=== PATIENT | male | born 1945 | race Caucasian/White ===

== ENCOUNTER 2018-07-15 11:49 | Outpatient (REF) | payer MEDICARE, OTHER, SELFPAY ==
[2018-07-15 21:37] LABS: TSH (W/Ref FT4) 3.16 uIU/mL (0.358-3.74); Vitamin B12 332 pg/mL (193-986)
[2018-07-17 11:09] LABS: PSA, Diagnostic 2.1 ng/ml (0-6.5)
[2018-07-22 09:43] LABS: Methylmalonic Acid 0.32 nmol/mL (<=0.40)
== END 2018-07-15 12:09 ==
LOC: NCHCN 11:49
PROVIDERS: PCP Family Medicine; Visit Provider Family Medicine
DX: I10 Essential (primary) hypertension (principal); N40.0 Benign prostatic hyperplasia without lower urinary tract symptoms; R73.09 Other abnormal glucose; G62.89 Other specified polyneuropathies
CPT/HCPCS: 80186; 82607; 83036; 84153; 84443

== ENCOUNTER → 2018-09-10 10:22 | Outpatient (BNVA) | payer MEDICARE, OTHER, SELFPAY | PROVIDERS: PCP Family Medicine; Referring Provider Family Medicine; Visit Provider Surgery | DX: R10.11 Right upper quadrant pain (principal); J44.9 Chronic obstructive pulmonary disease, unspecified; F17.210 Nicotine dependence, cigarettes, uncomplicated; I10 Essential (primary) hypertension | CPT/HCPCS: 99213 ==

== ENCOUNTER 2018-10-15 06:02 | Day surgery (SDC) | payer MEDICARE, SELFPAY ==
[2018-10-15 06:10] VITALS: BP 120/84; PULSE 92; RESP 19; TEMP 36.7; O2SAT 97
[2018-10-15] MEDS: Lactated Ringers 1,000 ML 30 ML IV (06:58)
--- NOTE | 2018-10-15 07:27 | HPE_ITS ---
Date of service: 10/15/18 Time of Service: 07:20 Assessment and Plan (1) Right upper quadrant abdominal pain: Current visit: No Status: Acute Recommended upper endoscopy to evaluate for acute on chronic changes of right upper quadrant abdominal pain. I reviewed the procedure with him and and discussed the risk of the procedure with Mr. Alan. All his questions were answered to his satisfaction. We will also consider MRCP if upper endoscopy is nondiagnostic, or unremarkable. This could be a retained common bile duct stone. I reviewed the procedure with him, and discussed the risks of the procedure. All his questions were answered to his satisfaction. Consent was obtained to proceed with upper endoscopy. History of Present Illness Chief Complaint: Right upper Quadrant abdominal pain Narrative: 73-year-old gentleman well-known to the practice from prior encounters for colonoscopy, hernia repair, cholecystectomy. He reports a history of right upper quadrant pain that is intermittent over the last several years the pain is usually dull, achy, and presents continually. It is often made worse by certain types of foods seems by questioning that these usually fatty foods but it is not consistent. He has had a cholecystectomy, and the pains been present since after that. He did have a EGD performed over a year ago in [place] which he reports showed fatty tumors in the stomach . He states that over the last few months the pain is become worse and he is concerned that there is been a change in the fatty tumors. I do not have any record of this EGD Review of Systems Review of Systems All systems reviewed & are unremarkable except as noted in HPI and below PFSH Medical History RUQ abdominal pain (Acute) Acromioclavicular joint pain (Chronic) Aortic aneurysm (Chronic) Atrial fibrillation (Chronic) COPD (chronic obstructive pulmonary disease) (Chronic) Early satiety (Chronic) Enlarged prostate (Chronic) Essential hypertension (Chronic) GERD (gastroesophageal reflux disease) (Chronic) Hyperlipidemia (Chronic) Memory impairment (Chronic) Neck pain (Chronic) On anticoagulant therapy (Chronic) Peripheral neuropathy (Chronic) Popliteal aneurysm (Chronic) Abnormal chest CT (Resolved) BRBPR (bright red blood per rectum) (Resolved) Blood in the stool (Resolved) Diverticulitis (Resolved) Dizziness (Resolved) Surgical History Appendectomy (Resolved) Cholecystectomy (Resolved) Colonoscopy - IV Sedation (Resolved 09/26/16) History of esophagogastroduodenoscopy (EGD) (Resolved 02/13/18) Repair of inguinal hernia (Resolved) Tonsillectomy (Resolved) Social History Smoking/Tobacco Use Status: Current every day tobacco type: cigarettes alcohol intake: former substance use type: does not use Meds Home Medications Medication Instructions Recorded Confirmed Type aspirin [Aspir-81] 81 mg PO DAILY 05/17/15 10/15/18 History pravastatin 40 mg PO HS 05/17/15 10/15/18 History warfarin 6 mg PO DAILY 05/17/15 09/10/18 History metoprolol tartrate 100 mg PO BID #180 tab 01/01/18 10/15/18 Rx rivaroxaban 20 mg tablet 20 mg PO DAILY 08/27/18 10/15/18 History vitamin B complex 1 cap PO DAILY 10/15/18 10/15/18 History Allergies Allergy/AdvReac Type Severity Reaction Status Date / Time Penicillins Allergy Skin Rash Verified 10/15/18 06:26 Green/Blue Dyes AdvReac Intermediate Uncoded 10/15/18 06:26 Exam Const General: cooperative, no acute distress, well developed and well groomed Nutritional Appearance: overweight Orientation: alert, awake and oriented x3 HENMT Head: normal to inspection Ears: hearing grossly normal bilaterally General nose exam: external nose normal Face and sinus: normal facial exam Mouth: oral mucosae normal Eyes Periorbital: periorbital findings normal Conjunctivae: conjunctivae normal Pupils: PERRL EOM: EOM intact bilaterally Neck Neck: normal visual inspection Chest Chest: normal inspection of the chest Resp Effort & Inspection: normal respiratory effort Auscultation: clear to auscultation bilaterally Cardio Rate: regular rate Rhythm: regular rhythm Heart Sounds: S1 normal and S2 normal GI Inspection: normal to inspection and non-distended Palpation: soft, no guarding and nontender Skin General skin exam: no rashes or lesions noted and turgor normal Neuro General: moves all extremities, no focal motor deficits and CN's II-XI intact bilaterally Extrem General: full ROM, normal capillary refill and no clubbing, cyanosis or edema Psych Appearance: grossly normal Mental Status: mental status grossly normal Judgment: judgment good Results Last Vital Signs Temp 36.7 C 10/15/18 06:10 Pulse 92 H 10/15/18 06:10 Resp 19 10/15/18 06:10 BP 120/84 10/15/18 06:10 Pulse Ox 97 10/15/18 06:10
--- NOTE | 2018-10-15 07:46 | STOM_PTH ---
PATIENT: Ignacio Alan LOC: [facility] U#:[id number] AGE/SX: 73/M ROOM: RE10/15/[address]: Frankie Hodgson DO : 1945 BED: DIS: 10/15/2018 SPEC #: [id number] RECD: 10/15/18 12:51 STATUS: [facility] #: [id number] ALMA: 10/15/18 07:[address]: Frankie Hodgson DEPT: Surgical Specimen RECD BY: Maria Luz Sahu ENTERED: 10/15/18 12:54 SP TYPE: STOMACH OTHR DR: Ana Rg V Tissues: 1 - STOMACH BIOPSY 2 - ESOPHAGUS BIOPSY Procedures: GROSS AND MICRO LEVEL 4 Comments: S19-11
[2018-10-15 08:39] VITALS: BP 131/89; PULSE 83; RESP 19; TEMP 36; O2SAT 99
--- NOTE | 2018-10-15 21:42 | ROE_ITS ---
Date of service: 10/15/18 Time of Service: 07:30 Operative Note DATE OF PROCEDURE: 10/15/18 PRE-OP DIAGNOSIS: Right upper quadrant abdominal pain POST-OP DIAGNOSIS: same PROCEDURE: Esophagogastroduodenoscopy with biopsy by cold forceps SURGEON: Frankie Hodgson ANESTHESIA: MAC (Dion Merrill CRNA; ASA 3 Mallampati class II) ESTIMATED BLOOD LOSS: 1 PATHOLOGY: other (1. Gastric antral biopsies 2. Biopsies of the gastroesophageal junction) COMPLICATIONS: None Patient was transported to: same day Patient's condition: stable Indications: 73-year-old gentleman well-known to the practice from prior encounters for colonoscopy, hernia repair, cholecystectomy. He reports a history of right upper quadrant pain that is intermittent over the last several years the pain is usually dull, achy, and presents continually. It is often made worse by certain types of foods seems by questioning that these usually fatty foods but it is not consistent. He has had a cholecystectomy, and the pains been present since after that. He did have a EGD performed over a year ago in [place] which he reports showed fatty tumors in the stomach . He states that over the last few months the pain is become worse and he is concerned that there is been a change in the fatty tumors. I do not have any record of this EGD. Recommended upper endoscopy to evaluate for acute on chronic changes of right upper quadrant abdominal pain. I reviewed the procedure with him and and discussed the risk of the procedure with Mr. Alan. All his questions were answered to his satisfaction. Consent was obtained to proceed with EGD. Findings: In examining the upper gastrointestinal tract from the oropharynx to the third portion of the duodenum, there was inflammatory changes with some shallow ulcerations noted in the gastric antrum for which biopsies were taken. There is also some irregularity noted around the GE junction at about 38 cm and biopsies were taken. Procedure Description: The patient was brought to the procedure room. Monitoring for telemetry, end- tidal CO2, O2 saturation, blood pressure were applied. An appropriate timeout was taken reviewing the patient's identification, allergies, medications,and procedure. A bite was placed, and sedation was titrated for effect by the SHARLENE. An Olympus variable stiffness endoscope was advanced from the oropharynx to the third portion of the duodenum without difficulty. The scope was then withdrawn in circumferential manner from the duodenum back to the oropharynx. In performing withdrawal of the scope, the duodenum appeared grossly normal. The scope was withdrawn into the gastric antrum and retroflexed to examine the entire stomach. There are no abnormalities noted of the duodenum. In the stomach there was noted inflammatory changes around the gastric antrum with some shallow ulcerations noted but the remainder of the stomach lesser and greater curvature anterior and posterior surfaces and fundus appeared grossly normal. The scope was then withdrawn to the GE junction which I measured at 38 cm The Z line was at 38 cm and appeared irregular. The irregularity of the Z line was noncircumferential and did not extend beyond 1 cm. Four-quadrant biopsies were taken from the GE junction submitted for pathology. I withdrew the scope thr ough the remainder of the esophagus all which appear grossly normal. Scope was then withdrawn terminating the upper endoscopy. Plan: No evidence of fatty tumors was identified in the stomach. There was ulceration seen and biopsies taken. Await biopsy results before making further recommendations in the interim I am going to start the patient on omeprazole.
== END 2018-10-15 09:49 | disposition home or self-care (01) ==
PROVIDERS: PCP Family Medicine; Visit Provider Surgery
PROC: 0DJ68ZZ Inspection of Stomach, Via Natural or Artificial Opening Endoscopic (ICD-10-PCS; CPT 43235; principal; 2018-10-15 07:30)
DX: R10.11 Right upper quadrant pain (principal); K31.89 Other diseases of stomach and duodenum; K21.0 Gastro-esophageal reflux disease with esophagitis; J44.9 Chronic obstructive pulmonary disease, unspecified; I10 Essential (primary) hypertension; K21.9 Gastro-esophageal reflux disease without esophagitis; F17.210 Nicotine dependence, cigarettes, uncomplicated
CPT/HCPCS: 43239; 88305; NC

== ENCOUNTER 2018-10-29 11:17 | Outpatient (CLI) | payer MEDICARE, OTHER, SELFPAY ==
[2018-10-29 11:57] LABS: Abs Immature Grans 0.01 k/cumm (0.0-0.09); Absolute Basophil Count 0.08 k/cumm (0.0-0.2); Absolute Eosinophil Count 0.39 k/cumm (0.0-0.7); Absolute Lymphocyte Count 2.91 k/cumm (1.2-3.4); Absolute Monocyte Count 0.81 k/cumm (0.11-0.7); Absolute Neutrophil Count 5.19 k/cumm (1.2-6.7); Basophils % 0.9; Eosinophils % 4.2; HCT 46.8 % (40.0-50.0); HGB 15.3 g/dL (13.5-17.5); Immature Grans % 0.1; Mean Corp. HGB Concentration 32.7 g/dL (32.0-36.0); Mean Corpuscular Hemoglobin 30.6 pg (27.0-33.0); Mean Corpuscular Volume 93.6 fL (80-95); Mean Platelet Volume 9.4 fL (8.0-11.0); Monocytes % 8.6; Neutrophils % 55.2; Platelet Count 273 x1000/uL (130-400); RBC Distribution Width 14.5 % (11.8-14.1); White Blood Cell Count 9.39 k/cumm (4.4-10.8)
[2018-10-29 12:38] LABS: ALT 19 U/L (12-78); AST 23 U/L (15-37); Albumin 3.6 g/dL (3.4-5.0); Alkaline Phosphatase 77 U/L (46-116); Anion Gap 9.8 mmol/L (3-11); BUN 15 mg/dL (7-18); Bilirubin, Total 1.6 mg/dL (0.2-1.0); CO2 28.2 mmol/L (21.0-32.0); Calcium 9.1 mg/dL (8.5-10.1); Chloride 103 mmol/L (98-107); Estimated GFR 59.68 (mL/min/1.73m2); Glucose 84 mg/dL (70-100); Lipase 144 U/L (73-393); Potassium 4.4 mmol/L (3.5-5.1); Sodium 141 mmol/L (136-145); Total Protein 7.5 g/dL (6.4-8.2)
[2018-10-30 18:06] LABS: Tissue Transglutaminase Ab IgA <1.2 U/mL; Tissue Transglutaminase Ab IgG 3.9 U/mL
== END 2018-10-29 11:37 ==
PROVIDERS: PCP Family Medicine; Visit Provider Specialist/Technologist Athletic Trainer
DX: R10.11 Right upper quadrant pain (principal); R14.1 Gas pain
CPT/HCPCS: 36415; 80053; 83690; 83516; 83735; 85025

== ENCOUNTER 2018-10-30 00:41 | Outpatient (CLI) | payer MEDICARE, OTHER, SELFPAY ==
--- NOTE | 2018-10-30 12:51 | DI.CT_ITS ---
SYMPTOMS/DIAGNOSIS: ACUTE ON CHRONIC ABDOMINAL PAIN, WORSE IN RIGHT UPPER QUADRANT, S/P GALLBLADDER REMOVAL, R10.11 CT SCAN OF THE ABDOMEN: CT scan of the abdomen was performed following the uneventful administration of intravenous and oral contrast material. Comparison CT scan is 08/27/16. There is some patient motion artifact. Mild dependent atelectatic changes are seen in the lung bases. The liver is normal in size. No suspicious hepatic mass is seen. The portal, superior mesenteric and splenic veins are patent. The patient is status post cholecystectomy. No biliary ductal dilatation is present. The pancreas is unremarkable, as are the spleen and adrenal glands. The kidneys show normal and symmetric enhancement. No evidence of a solid renal mass or obstruction is identified. There are bilateral renal cysts. The collecting system appears grossly unremarkable. There is a 4 cm infrarenal abdominal aortic aneurysm again noted. Atherosclerosis of the abdominal aorta is noted. No significant abdominal adenopathy, ascites or pneumoperitoneum is present. The bowel shows no evidence of obstruction or inflammation. No abnormal fluid collections are seen in the abdomen. There are degenerative changes seen in the spine. IMPRESSION: 1. No evidence of an acute abdomen. 2. Status post cholecystectomy. No biliary ductal dilatation. 3. Stable infrarenal abdominal aortic aneurysm.
[2018-10-30] MEDS: Omnipaque 350 MG/ML 50 ML BTL IJ (13:21)
[2018-10-30] MEDS: Omnipaque 350 MG/ML 100 ML BTL IJ (14:36)
== END 2018-10-30 01:01 ==
PROVIDERS: PCP Family Medicine; Visit Provider Specialist/Technologist Athletic Trainer
DX: R10.11 Right upper quadrant pain (principal); G89.29 Other chronic pain; Z90.49 Acquired absence of other specified parts of digestive tract; I71.4 Abdominal aortic aneurysm, without rupture
CPT/HCPCS: 74160; J3490; Q9967

== ENCOUNTER 2018-11-05 01:18 | Outpatient (CLI) | payer MEDICARE, OTHER, SELFPAY ==
--- NOTE | 2018-11-05 08:51 | DI.RAD_ITS ---
SYMPTOM/DIAGNOSIS: THORACIC BACK PAIN, M54.9, H/O INJURY CHILD THORACIC SPINE: The vertebral bodies are intact. Anterior spurring is noted at the T 9-10 and T 10-11 levels. 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 The pedicles and spinous processes are intact. The paravertebral soft tissues are normal. SUMMARY: Degenerative changes involving the dorsal spine as described above. 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 No acute abnormality is demonstrated. If there is further strong specific clinical question, then an MRI might be considered for further review.
== END 2018-11-05 01:38 ==
PROVIDERS: PCP Family Medicine; Visit Provider Specialist/Technologist Athletic Trainer
DX: M54.6 Pain in thoracic spine (principal); M50.321 Other cervical disc degeneration at C4-C5 level; M50.322 Other cervical disc degeneration at C5-C6 level; M50.323 Other cervical disc degeneration at C6-C7 level; M47.814 Spondylosis without myelopathy or radiculopathy, thoracic region
CPT/HCPCS: 72072

== ENCOUNTER 2019-01-10 09:35 | Outpatient (REF) | payer MEDICARE, OTHER, SELFPAY ==
[2019-01-11 20:12] LABS: Campylobacter PCR SEE COMMENTS; Salmonella PCR SEE COMMENTS; Shiga Toxin PCR SEE COMMENTS; Shigella/Enteroinvasive Ecoli SEE COMMENTS
[2019-01-14 00:57] LABS: Calprotectin 437 mcg/g
== END 2019-01-10 09:55 ==
LOC: LBN 09:35
PROVIDERS: PCP Family Medicine; Visit Provider Nurse Practitioner Family
DX: R14.0 Abdominal distension (gaseous) (principal)
CPT/HCPCS: 87329; 87505; 83993

== ENCOUNTER 2019-08-18 11:38 | Outpatient (REF) | payer MEDICARE, OTHER, SELFPAY ==
[2019-08-18 23:08] LABS: Vitamin B12 1567 pg/mL (193-986)
== END 2019-08-18 11:58 ==
LOC: NCHCN 11:38
PROVIDERS: PCP Family Medicine; Visit Provider Family Medicine
DX: E53.8 Deficiency of other specified B group vitamins (principal); R26.89 Other abnormalities of gait and mobility
CPT/HCPCS: 82607

== ENCOUNTER 2019-09-04 01:29 | Outpatient (CLI) | payer MEDICARE, OTHER, SELFPAY ==
--- NOTE | 2019-09-04 14:53 | DI.US_ITS ---
EXAM: US CAROTID CLINICAL HISTORY: NECK PAIN M54.2, HYPERLIPIDEMIA E78.5 TECHNIQUE: Ultrasound performed using standard protocol. COMPARISON: No exams were available for comparison FINDINGS: There is mixed calcific and noncalcified plaque in the right common carotid bulb and right internal carotid artery. There velocity elevations consistent with a greater than 70 percent stenosis. There is a small focus of calcific plaque in the left common carotid bulb. The velocity measurements are within the normal range, consistent with a less than 50 percent stenosis. Both vertebral arteries sh ow antegrade flow. IMPRESSION: Greater than 70 percent stenosis at the at the proximal right internal carotid artery. Less than 50 percent stenosis of the left internal carotid artery.
== END 2019-09-04 01:49 ==
PROVIDERS: PCP Family Medicine; Visit Provider Family Medicine
DX: M54.2 Cervicalgia (principal); I65.23 Occlusion and stenosis of bilateral carotid arteries
CPT/HCPCS: 93880

== ENCOUNTER 2019-11-10 08:04 | Outpatient (CLI) | payer MEDICARE, OTHER, SELFPAY | END 2019-11-10 08:24 | PROVIDERS: PCP Family Medicine; Visit Provider Internal Medicine Cardiovascular Disease | DX: I65.23 Occlusion and stenosis of bilateral carotid arteries (principal); I48.91 Unspecified atrial fibrillation; J44.9 Chronic obstructive pulmonary disease, unspecified; I10 Essential (primary) hypertension; Z87.891 Personal history of nicotine dependence | CPT/HCPCS: 99204; 99215; 93005; 93010 ==

== ENCOUNTER 2020-02-08 13:06 | Outpatient (CLI) | payer MEDICARE, OTHER, SELFPAY ==
--- NOTE | 2020-02-08 14:12 | DI.US_ITS ---
EXAM: US UPPER EXTREMITY VENOUS LT CLINICAL HISTORY: LT ARM SWELLING, PAIN, NEW A FIB, ? DVT OR CLOT, VASCULAR HISTORY TECHNIQUE: Ultrasound performed using standard protocol. COMPARISON: No exams were available for comparison FINDINGS: Duplex evaluation of the deep venous system of the left upper extremity was performed according to [facility] usual protocol. There is no evidence of deep venous thrombosis or superficial thrombus in the left upper extremity venous system. IMPRESSION: Negative DVT ultrasound. DATA REPOSITORY:
[2020-02-08 14:57] LABS: HCT 46.3 % (40.0-50.0); HGB 14.9 g/dL (13.5-17.5); Mean Corp. HGB Concentration 32.2 g/dL (32.0-36.0); Mean Corpuscular Hemoglobin 29.6 pg (27.0-33.0); Mean Corpuscular Volume 91.9 fL (80-95); Mean Platelet Volume 9.3 fL (8.0-11.0); Platelet Count 270 x1000/uL (130-400); RBC 5.04 m/cumm (4.50-6.00); RBC Distribution Width 15.3 % (11.8-14.1); White Blood Cell Count 9.66 k/cumm (4.4-10.8)
[2020-02-08 15:13] LABS: INR 1.2 (0.9-1.1); Prothrombin Time 12.2 sec (9.3-11.0)
[2020-02-08 15:19] LABS: ALT 23 U/L (16-63); AST 25 U/L (15-37); Albumin 3.7 g/dL (3.4-5.0); Alkaline Phosphatase 84 U/L (46-116); Anion Gap 7.3 mmol/L (3-11); BUN 19 mg/dL (7-18); CO2 28.7 mmol/L (21.0-32.0); CREATININE 1.13 mg/dL (0.70-1.30); Calcium 9.7 mg/dL (8.5-10.1); Chloride 102 mmol/L (98-107); Glucose 93 mg/dL (74-106); Potassium 4.3 mmol/L (3.5-5.1); Sodium 138 mmol/L (136-145); Total Protein 8.6 g/dL (6.4-8.2)
[2020-02-08 15:30] LABS: D-Dimer 823 ng/mlFEU (<500)
[2020-02-08 15:35] LABS: Calculated LDL 94 mg/dL (<100); Cholesterol 191 mg/dL (<200); HDL Cholesterol 71 mg/dL (40-60); Triglyceride 133 mg/dL (<150)
== END 2020-02-08 13:26 ==
PROVIDERS: PCP Family Medicine; Visit Provider Nurse Practitioner Family
DX: R22.32 Localized swelling, mass and lump, left upper limb (principal); M79.602 Pain in left arm; I10 Essential (primary) hypertension; I48.0 Paroxysmal atrial fibrillation; Z79.01 Long term (current) use of anticoagulants; E53.8 Deficiency of other specified B group vitamins; R73.01 Impaired fasting glucose; I65.23 Occlusion and stenosis of bilateral carotid arteries; R19.5 Other fecal abnormalities
CPT/HCPCS: 36415; 80053; 80061; 85027; 83036; 85379; 85610; 85730; 93971

== ENCOUNTER → 2020-08-09 12:46 | Outpatient (BNVA) | payer MEDICARE, OTHER, SELFPAY | PROVIDERS: PCP Family Medicine; Referring Provider Family Medicine; Visit Provider Internal Medicine Cardiovascular Disease | DX: I48.21 Permanent atrial fibrillation (principal); R06.02 Shortness of breath; I65.29 Occlusion and stenosis of unspecified carotid artery; I10 Essential (primary) hypertension; J44.9 Chronic obstructive pulmonary disease, unspecified; Z87.891 Personal history of nicotine dependence | CPT/HCPCS: 99214 ==

== ENCOUNTER 2020-08-16 00:47 | Outpatient (CLI) | payer MEDICARE, OTHER, SELFPAY ==
--- NOTE | 2020-08-16 06:45 | DI.NM_ITS ---
APPROVED REPORT Exam: Exercise Treadmill Patient Location: Out-Patient Room/Bed: Stress Nurse: Kanchan Calvin RN BMI: 29.12 Baseline Rhythm: Atrial Fibrillation Medical History Medical History: AFIB. COPD. PAD. Peripheral Neuropathy. HTN. HLD. Aortic Aneurysm. Popliteal Aneurys m. COPD. Cardiac Medications: Metoprolol Tartrate. ASA. Rivaroxaban. Allergies: Penicillins. Green/Blue Dyes. Cardiac Risk Factors: FHX of CAD, HTN, Hyperlipidemia, COPD, Smoking (former) Previous Cardiac Procedures: None. Pretest Chest Pain Characteristics: None. Exercise History: Sedentary Physical Disabilities: None. Lung Sounds: Clear to auscultation Heart Sounds: Irregular Stress Test Details Test: Exercise stress testing was performed using a Shravan protocol. Nuclear Acquisition: Rest Tc-99m/Stress Tc-99m 1 day Rest Isotope: Tc-99m Sestamibi. Dose: 14.4 Date: 08/16/2020 Injection Time: 0840 Stress Isotope: Tc-99m Sestamibi. Dose: 46 Date: 08/16/2020 Injection Time: 1015 HR Resting HR Supine: 97 bpm Max Heart Rate (APMHR): 147 bpm Resting HR Standin bpm Target HR (85% APMHR): 124 bpm Max HR Achieved: 188 bpm % of APMHR: 127 Recovery HR: 112 bpm HR response to stress: Accelerated HR response to stress BP Resting BP Supine: 170/100 mmHg Resting BP Standin/96 mmHg Max BP: 218/92 mmHg Recovery BP: 176/94 mmHg BP response to stress: Abnormal hypertensive response to stress. ECG Resting ECG: Atrial Fibrillation Ectopy: None. Stress ECG: Atrial Fibrillation ST Change: No significant ST segment changes noted. Arrhythmia: PVCs, Couplets, triplets Recovery ECG: Atrial Fibrillation Recovery ST Change: Normal Recovery Arrhythmia: PVCs. Clinical Reason for Termination: Dyspnea Stress Symptoms: Dyspnea Exercise duration: 3 min11 sec Highest Stage Reached: Stage 2: 2.5 mph at 12% grade. Exercise capacity: 4.83 METs Stress ECG Conclusion 1. The patient exercised for 3 minutes (5 METS). Exercise was stopped due to dyspnea. 2. The patient had PVCs but no evidence of ischemia on the ECG portion of the exam. Stress Test Summary STAGE Time (mins) Speed (mph) Grade (%) HR BP SYMPTOMS METS Supine 97 170/100 Standing 125 158/96 1 3 1.7 10 179 Dyspnea 4.6 1 min recovery Lightheadedness. 3 min recovery 119 218/92 Symptoms resolved. 6 min recovery 112 176/94 MPI Conclusion Fraction was 64% with stress. There were no wall motion abnormalities. There was no evidence of ischemia on the imaging portion of the exam. This represents a normal SPECT stress test. Radiologist Interpretation Radiologist Interpretation by: Rom Acuna MD Interpretation Date/Time: 08/16/2020 16:31:01
== END 2020-08-16 01:07 ==
PROVIDERS: PCP Family Medicine; Visit Provider Internal Medicine Cardiovascular Disease
DX: R06.02 Shortness of breath (principal); Z82.49 Family history of ischemic heart disease and other diseases of the circulatory system; I10 Essential (primary) hypertension; E78.5 Hyperlipidemia, unspecified; J44.9 Chronic obstructive pulmonary disease, unspecified; Z87.891 Personal history of nicotine dependence; I49.3 Ventricular premature depolarization
CPT/HCPCS: 78452; 93016; 93018; 93017

== ENCOUNTER → 2020-08-23 11:25 | Outpatient (BNVA) | payer MEDICARE, OTHER, SELFPAY | PROVIDERS: PCP Family Medicine; Referring Provider Family Medicine; Visit Provider Internal Medicine Cardiovascular Disease | DX: I48.21 Permanent atrial fibrillation (principal); R06.02 Shortness of breath; J44.9 Chronic obstructive pulmonary disease, unspecified; I10 Essential (primary) hypertension | CPT/HCPCS: 99442; 99213 ==

== ENCOUNTER → 2020-09-13 09:32 | Outpatient (BNVA) | payer MEDICARE, OTHER, SELFPAY | PROVIDERS: PCP Family Medicine; Referring Provider Family Medicine; Visit Provider Internal Medicine Cardiovascular Disease | DX: I48.91 Unspecified atrial fibrillation (principal); Z79.01 Long term (current) use of anticoagulants; R20.8 Other disturbances of skin sensation; I10 Essential (primary) hypertension; J44.9 Chronic obstructive pulmonary disease, unspecified | CPT/HCPCS: 99214; 99442 ==

== ENCOUNTER 2020-12-14 04:29 | Outpatient (CLI) | payer MEDICARE, OTHER, SELFPAY ==
[2020-12-14 09:32] LABS: HCT 51.4 % (40.0-50.0); HGB 16.5 g/dL (13.5-17.5); MCH 29.5 pg (27.0-33.0); MCHC 32.1 % (32.0-36.0); MCV 91.8 fL (80-95); MPV 9.4 fL (8.0-11.0); Platelet Count 356 10^3/uL (130-400); RDW 14.4 % (11.8-14.1); RDW-SD 48.5 fL; WBC 12.09 10^3/uL (4.4-10.8)
[2020-12-14 10:03] LABS: Anion Gap 7.1 mmol/L (3-11); BUN 30 mg/dL (7-18); CO2 29.9 mmol/L (21.0-32.0); CREATININE 1.4 mg/dL (0.70-1.30); Calcium 9.3 mg/dL (8.5-10.1); Chloride 104 mmol/L (98-107); Estimated GFR 49.68 (mL/min/1.73m2); Glucose 65 mg/dL (74-106); Potassium 3.8 mmol/L (3.5-5.1); Sodium 141 mmol/L (136-145); Uric Acid 7.5 mg/dL (3.5-7.2)
[2020-12-14 10:04] LABS: C-Reactive Protein < 0.05 mg/dL (0.0-0.3)
[2020-12-14 21:59] LABS: ESR 19 mm/hr (<or=20)
== END 2020-12-14 04:30 | disposition home or self-care (01) ==
LOC: LBO 04:29
PROVIDERS: PCP Family Medicine; Visit Provider Nurse Practitioner Family
DX: M79.671 Pain in right foot (principal)
CPT/HCPCS: 36415; 80048; 85027; 85652; 84550; 86140

== ENCOUNTER → 2020-12-27 12:41 | Outpatient (BNVA) | payer MEDICARE, OTHER, SELFPAY | PROVIDERS: PCP Family Medicine; Referring Provider Family Medicine; Visit Provider Internal Medicine Cardiovascular Disease | DX: I48.91 Unspecified atrial fibrillation (principal); I65.29 Occlusion and stenosis of unspecified carotid artery; I71.4 Abdominal aortic aneurysm, without rupture; Z79.01 Long term (current) use of anticoagulants | CPT/HCPCS: 99213 ==

== ENCOUNTER → 2021-06-20 12:33 | Outpatient (BNVA) | payer MEDICARE, OTHER, SELFPAY | PROVIDERS: PCP Family Medicine; Referring Provider Family Medicine; Visit Provider Internal Medicine Cardiovascular Disease | DX: I48.21 Permanent atrial fibrillation (principal); I71.4 Abdominal aortic aneurysm, without rupture; I65.29 Occlusion and stenosis of unspecified carotid artery; Z87.891 Personal history of nicotine dependence | CPT/HCPCS: 99213 ==

== ENCOUNTER 2021-12-05 10:47 | Outpatient (REF) | payer MEDICARE, OTHER, SELFPAY ==
[2021-12-05 14:57] LABS: HCT 43.8 % (40.0-50.0); MCH 29.6 pg (27.0-33.0); MCV 92.6 fL (80-95); MPV 9.7 fL (8.0-11.0); Platelet Count 388 10^3/uL (130-400); RBC 4.73 10^6/uL (4.36-5.78); RDW 13.5 % (11.8-14.1); RDW-SD 45.5 fL; WBC 10.48 10^3/uL (4.4-10.8)
[2021-12-05 14:58] LABS: ESR 89 mm/hr (0-20)
[2021-12-05 15:35] LABS: ALT 22 U/L (16-63); AST 21 U/L (15-37); Albumin 3.4 g/dL (3.4-5.0); Alkaline Phosphatase 76 U/L (46-116); BUN 19 mg/dL (7-18); Bilirubin, Total 0.8 mg/dL (0.2-1.0); C-Reactive Protein 0.91 mg/dL (0.0-0.3); CREATININE 1.1 mg/dL (0.70-1.30); Calcium 9.2 mg/dL (8.5-10.1); Calculated LDL 167 mg/dL (<100); Chloride 105 mmol/L (98-107); Cholesterol 248 mg/dL (<200); Glucose 92 mg/dL (74-106); HDL Cholesterol 54 mg/dL (40-60); Potassium 4.8 mmol/L (3.5-5.1); Sodium 140 mmol/L (136-145); TSH (W/Ref FT4) 2.46 uIU/mL (0.36-3.74); Total Protein 7.5 g/dL (6.4-8.2); Triglyceride 138 mg/dL (<150); Vitamin B12 922 pg/mL (193-986)
== END 2021-12-05 10:48 | disposition home or self-care (01) ==
LOC: NCHCN 10:47
PROVIDERS: PCP Family Medicine; Visit Provider Family Medicine
DX: R19.7 Diarrhea, unspecified (principal); R73.03 Prediabetes; G56.00 Carpal tunnel syndrome, unspecified upper limb; Z86.16 Personal history of COVID-19
CPT/HCPCS: 80053; 80061; 85027; 85652; 82607; 83036; 84443; 86140

== ENCOUNTER → 2022-06-05 11:02 | Outpatient (BNVA) | payer MEDICARE, OTHER, SELFPAY | PROVIDERS: PCP Family Medicine; Referring Provider Family Medicine; Visit Provider Internal Medicine Cardiovascular Disease | DX: I48.21 Permanent atrial fibrillation (principal); I71.4 Abdominal aortic aneurysm, without rupture | CPT/HCPCS: 99213 ==

== ENCOUNTER 2022-07-31 16:07 | Outpatient (REF) | payer MEDICARE, OTHER, SELFPAY ==
[2022-07-31 15:23] LABS: HCT 46.1 % (40.0-50.0); HGB 14.8 g/dL (13.5-17.5)
[2022-07-31 15:25] LABS: ESR 31 mm/hr (0-20)
[2022-07-31 15:57] LABS: ALT 23 U/L (16-63); AST 25 U/L (15-37); Albumin 3.7 g/dL (3.4-5.0); Alkaline Phosphatase 69 U/L (46-116); Anion Gap 7.6 mmol/L (3-11); BUN 20 mg/dL (7-18); Bilirubin, Total 1.4 mg/dL (0.2-1.0); C-Reactive Protein 0.47 mg/dL (0.0-0.3); CO2 26.4 mmol/L (21.0-32.0); CREATININE 1.1 mg/dL (0.70-1.30); Calcium 9.6 mg/dL (8.5-10.1); Chloride 108 mmol/L (98-107); Estimated GFR 70.01 (mL/min/1.73m2); Glucose 107 mg/dL (74-106); Potassium 4.2 mmol/L (3.5-5.1); Sodium 142 mmol/L (136-145); Total Protein 7.7 g/dL (6.4-8.2)
[2022-07-31 16:01] LABS: Hemoglobin A1C 5.7 % (<5.7)
== END 2022-07-31 16:08 | disposition home or self-care (01) ==
LOC: NCHCN 16:07
PROVIDERS: PCP Family Medicine; Visit Provider Family Medicine
DX: R07.9 Chest pain, unspecified (principal); R73.03 Prediabetes; E53.8 Deficiency of other specified B group vitamins; E78.5 Hyperlipidemia, unspecified; I10 Essential (primary) hypertension; R70.0 Elevated erythrocyte sedimentation rate
CPT/HCPCS: 80053; 85652; 83036; 85014; 85018; 86140

== ENCOUNTER → 2022-08-09 02:43 | Outpatient (CLI) | payer MEDICARE, SELFPAY ==
--- NOTE | 2022-08-09 11:00 | DI.NM_ITS ---
APPROVED REPORT Exam: Exercise Treadmill Patient Location: Out-Patient Room/Bed: Stress Nurse: Nesha Coyne RN Ordering Provider:TIFFANY ASHLEY, Contact Number: [phone] BMI: 26.97 Baseline Rhythm: Atrial Fibrillation Indications: Intermittent left sided chest pain. Medical History Medical History: AAA. Afib. COPD. HTN. GERD. HLD. Peripheral neuropathy. Popliteal aneurysm. Cardiac Medications: Rivaroxaban. Aspirin. Allergies: Penicillins. Dye. Cardiac Risk Factors: Family hx. HTN. COPD. HTN. Pre-diabetes. Former smoker. HLD. Previous Cardiac Procedures: None Pretest Chest Pain Characteristics: None Exercise History: Physically active Physical Disabilities: None Lung Sounds: Crackles in bilateral bases. Heart Sounds: Irregular. Stress Test Details Test: Exercise stress testing was performed using a Shravan protocol. Nuclear Acquisition: Rest Tc-99m/Stress Tc-99m 1 day Rest Isotope: Tc-99m Sestamibi. Dose: 10.3 Date: 08/09/2022 Injection Time: 1100 Stress Isotope: Tc-99m Sestamibi. Dose: 31.5 Date: 08/09/2022 Injection Time: 1255 HR Resting HR Supine: 85 bpm Max Heart Rate (APMHR): 145 bpm Resting HR Standin bpm Target HR (85% APMHR): 123 bpm Max HR Achieved: 167 bpm % of APMHR: 115 Recovery HR: 96 bpm HR response to stress: Accelerated HR response to stress BP Resting BP Supine: 154/86 mmHg Resting BP Standin/68 mmHg Max BP: 182/84 mmHg Recovery BP: 148/76 mmHg BP response to stress: Normal blood pressure response to stress. ECG Resting ECG: Atrial Fibrillation Ectopy: None Stress ECG: Atrial Fibrillation ST Change: No significant ST segment changes noted Arrhythmia: None Recovery ECG: Atrial Fibrillation Recovery ST Change: No significant ST segment changes noted Clinical Reason for Termination: Fatigue Stress Symptoms: Dyspnea, General Fatigue Exercise duration: 2 min00 sec Highest Stage Reached: Stage 1: 1.7 mph at 10% grade. Exercise capacity: 4.64 METs Scale: Active Angina Score: None Rate Pressure Product: 66819 Stress ECG Conclusion 1. The resting electrocardiogram showed atrial fibrillation, poor R wave progression 2. Patient exercised on the treadmill for 2 minutes, achieving a workload of 4.64 METS and stopping d ue to shortness of breath and fatigue 3. Accelerated heart rate response to exercise. The patient achieved 115% of predicted heart rate fo r age 4. There was no electrocardiographic evidence of myocardial ischemia 5. See MPI report Stress Test Summary STAGE Time (mins) Speed (mph) Grade (%) HR BP SpO2 SYMPTOMS METS Supine 85 154/84 Standing 95 144/68 1 min recovery 156 182/84 93 3 min recovery 92 180/88 89 6 min recovery 96 148/76 94 MPI Conclusion Myocardial perfusion is normal without ischemia or evidence of prior infarction EF 58%, normal wall motion Radiologist Interpretation Radiologist Interpretation by: Rom Acuna MD Interpretation Date/Time: 08/09/2022 16:53:58
== END ==
PROVIDERS: PCP Family Medicine; Visit Provider Family Medicine
DX: R07.9 Chest pain, unspecified (principal)
CPT/HCPCS: 78452; 93016; 93018; 93017

== ENCOUNTER 2022-12-21 00:22 | Outpatient (CLI) | payer MEDICARE, SELFPAY ==
--- OUTSIDE RECORDS SUMMARY | 2022-12-21 00:24 | XMS_ITS ---
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 ALLERGIES Substance Reaction Event Type Date Status all dyes in pills Unknown Non Drug Allergy Jan, Active Peanut (Diagnostic) Unknown Drug Allergy Jan, A ctive Penicillin V Potassium Unknown Drug Allergy Jan, Active ENCOUNTERS Encounter Location Date Diagnosis [facility] [address] [place] [phone] Apr, Status post cholecystectomy Z90.49 ; History of colitis Z87.19 ; Hematochezia K92.1 ; Diarrhea, unspecified type R19.7 ; Change in bowel habits R19.4 ; Abdominal aortic aneurysm (AAA) without rupture I71.4 and Melena K92.[address] [facility] [address] [place] [id number] Apr, [facility] [address] [facility] [address] [place], [place] [id number] February, [facility] [address] [facility] [address] [place], [place] [id number] Jan, [facility] [address] [facility] [address] [place], [place] [id number] Jan, Diarrhea, unspecified type R19.7 ; Change in bowel habits R19.4 ; Status post cholecystectomy Z90.49 ; Abdominal aortic aneurysm (AAA) without rupture I71.4 ; History of colitis Z87.19 ; Melena K92.1 and Hematochezia K92.1 [facility] [address] [facility] [address] [place], [place] [id number] Jan, [facility] [address] [place] [id number] Dec, [facility] [address] [place] [address] [place] [phone] Jan, 2020 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 [address] [place] [id number] Aug, [facility] [address] [place] [id number] Aug, Dizziness R42 ; Poor balance R26.89 and Perforation of left tympanic membrane H72.92 [facility] [address] [place] [id number] Aug, IMMUNIZATIONS No Known Immunizations SOCIAL HISTORY Qualifiers Date Never Smoker REASON FOR REFERRAL FUNCTIONAL STATUS PLAN OF CARE Activity Details VITAL SIGNS Height 5 ft 9.50 in in 2022-01-17 Height 5 ft 9.50 in in 2019-09-01 Weight 189 lbs 2022-01-17 Weight 185 lbs 2019-09-01 Temperature 96.8 degrees Fahrenheit Heart Rate 105 /min 2022-01-17 Oximetry 95 2022-01-17 BMI 27.51 kg/m2 2022-01-17 BMI 26.93 kg/m2 2019-09-01 Blood pressure systolic 124 mm Hg Blood pressure diastolic 70 mm Hg 2022-01 MEDICATIONS Medication Instructions Dosage Frequency Start Date End Date Duration Status Vitamin D (Cholecalcifer ol) 25 MCG (1000 UT) Orally Once a day 1 tablet 24h Active Aspirin 81 81 MG Orally Once a day 1 tablet 24h Active Xarelto 20 MG Orally Once a day 1 tablet with food 24h Active B Complex - Acti ve Metoprolol Tartrate 100 MG Orally Twice a day 1 tablet with food 12h Not-Takin g Metoprolol Tartrate 50 MG Orally Twice a day 1 tablet with food 12h Not-Takin g B-12 100 MCG Act halle Pravachol 40 MG Orally Once a day 1 tablet 24h Not-Takin g PROCEDURES Procedure Date Ordered Result Body Site COMPREHENSIVE AUDIOMET THRESH AND SPEECH January 19 0 RESULTS No Results REASON FOR VISIT GI- COLO 2 WK F/U, GI- COLO, GI- COLO, cancel procedure & f/u?, pt advise// lmom 05/03, GI- COLO, GI- COLO FOLLOW UP, GI- COLO, r/s colo, clearance refaxed 02/19 , GI- Diarrhea, Records, diarrhea, AUD AUDIOGRAM--tinnitus for years, 1ST NO SHOW, AUD AUDIOGRAM, ENT dizziness, PFP, New Patient, PFP PA Joint Visit. , pre-load Insurance Providers Health Insurance Type Health Plan Insurance Address Health Plan Insurance Phone Health Plan Insurance Name Health Plan Coverage Dates Member ID Patient Relationship to Subscriber Patient Address Patient Phone Patient Name Patient Date of Subscriber ID Subscriber Name Subscriber Date of Group No MEDICARE PART A [address] [facility] [address] MEDICARE PART A self Ignaciostefanie Alan [id number] MEDICARE [address] [facility] [address] MEDICARE self Ignacio Waqas [id number] [employer] [address] [address] [facility] [address] [employer] [place] [place] self Ignaciostefanie Alan [id number] Plan C
[2022-12-21 08:01] LABS: CREATININE 1.3 mg/dL (0.70-1.30); Estimated GFR 57.29 (mL/min/1.73m2)
[2022-12-21] MEDS: Omnipaque 350 MG/ML 500 ML BTL-Imaging package 125 ML IJ (08:41)
--- NOTE | 2022-12-21 08:42 | DI.CT_ITS ---
Exam(s) CT THORAX ABD/PEL CTA EXAM: CT THORAX ABD/PEL CTA CLINICAL HISTORY: AAA WO RUPTURE, I71.40. TECHNIQUE: Imaging Protocol: Axial CT angiography was performed with multi-slice acquisition and m ulti-planar and/or 3D reconstructions. CONTRAST MATERIAL: Intravenous: Omnipaque 350 contrast volume:125 mL Oral: No COMPARISON: CT UPPER ABD W/WO CONTRAST(P) from 08/20/2013 CR CHEST 2 VIEWS PA,LAT from 05/17/2015 CT CTA ABDOMEN PELVIS from 08/27/2016 CT,NM,TMT NM MPI REST STRESS GRP from 08/09/2022 FINDINGS: CHEST: Tracheobronchial tree: Patent where visualized. Pulmonary parenchyma: Moderate emphysematous changes are seen in the lungs. There is again seen a ca lcified granuloma in the superior segment of the left lower lobe. No focal consolidating infiltrates are present. There is again seen a peripheral nodule in the right middle lobe. This is unchanged d ating back to 08/27/2016. No suspicious pulmonary nodules are present. Pulmonary Arteries: No evidence of filling defect to suggest pulmonary emboli. Mediastinum and Kylah: No dominant adenopathy or fluid collection. Visualized thyroid: Unremarkable. Pleura: No effusion or pneumothorax. Heart: There is mild cardiomegaly. Mild coronary artery calcification is present. No pericardial ef fusion. Aorta: The ascending thoracic aorta measures 3.9 x 3.4 cm. There is mild atherosclerosis. No eviden ce of dissection. Soft Tissues: Unremarkable. Bones: Within normal limits for the patient's age. ABDOMEN AND PELVIS: Abdomen: Celiac axis/mesenteric arteries: No evidence of occlusion or significant stenosis. Renal Arteries: No evidence of occlusion. There is moderate narrowing of the origin of the left zandra l artery. There is a single renal artery perfusing each kidney. Aorta: There is atherosclerosis present. There is a 4.8 x 4.8 cm infrarenal abdominal aortic aneury sm. It extends just to the bifurcation but does not include the bifurcation. Pelvis: Iliac Arteries: No evidence of occlusion or significant stenosis. Atherosclerosis is present. Common Femoral Arteries: No evidence of occlusion or significant stenosis. ABDOMEN: Liver: Normal density. No measurable mass. Gallbladder and Biliary Tract: Status post cholecystectomy. No biliary ductal dilatation. Pancreas: Normal density, no abnormal calcifications or inflammatory process. Spleen: Normal. Adrenals: No masses seen. Kidneys: Normal size, contour and axis. No radiodense stones or obstructive uropathy. There are bilat eral simple renal cysts. No follow-up is recommended. Bowel: There is diverticulosis of the colon. There is some thickening of the wall in the mid sigmoid colon. There is mild stranding of the adjacent soft tissues. There is no evidence of bowel obstruc tion. The bowel is otherwise unremarkable. No evidence of appendicitis. Peritoneal Cavity: No ascites, collection or mesenteric inflammatory response. No free air. Lymph Nodes: Within normal limits. Bones: Within normal limits for the patient's age. Soft Tissues: There are findings suggestive of prior bilateral inguinal hernia repairs. PELVIS: Bladder: Symmetric distention, no gross wall thickening. Reproductive Organs: Mildly enlarged prostate gland. Lymph Nodes: Within normal limits. Bones: Within normal limits for the patient's age. IMPRESSION: 1. No acute pulmonary process. 2. Ectasia of the ascending thoracic aorta. 3. 4.8 x 4.8 cm infrarenal abdominal aortic aneurysm. No evidence of dissection. 4. Colonic diverticulosis most marked in the sigmoid colon. There is a focal area of wall thickening in the mid sigmoid colon with mild stranding of the adjacent soft tissues. (Series 5, image [id number]; series 8, images 37-43). Inflammation/infection versus neoplasm. Follow-up examination with col onoscopy and or barium enema is recommended. Unexpected findings RADIATION DOSE DELIVERED: 1,247.31mGy.cm Total DLP DATA REPOSITORY: All CT scans at this facility are submitted to the National Radiology Data Registry (NRDR) Dose Index Registry (DIR) with the [employer] (ACR). RADIATION OPTIMIZATION: All CT scans at this facility use at least one of these dose optimization te chniques: automated exposure control; mA and/or kV adjustment per patient size (includes targeted exa ms where dose is matched to clinical indication); or iterative reconstruction.
== END 2022-12-21 00:42 ==
LOC: DI 00:23
PROVIDERS: PCP Family Medicine; Visit Provider Surgery Vascular Surgery
DX: I71.43 Infrarenal abdominal aortic aneurysm, without rupture (principal); K57.30 Diverticulosis of large intestine without perforation or abscess without bleeding
CPT/HCPCS: 71275; 74174; 82565

== ENCOUNTER 2023-01-29 15:18 | Outpatient (REF) | payer MEDICARE, SELFPAY ==
[2023-01-29 16:05] LABS: HCT 45.2 % (40.0-50.0); HGB 14.9 g/dL (13.5-17.5)
[2023-01-29 16:15] LABS: ALT 23 U/L (16-63); AST 19 U/L (15-37); Albumin 3.8 g/dL (3.4-5.0); Alkaline Phosphatase 66 U/L (46-116); Anion Gap 9.8 mmol/L (3-11); BUN 20 mg/dL (7-18); Bilirubin, Total 1.1 mg/dL (0.2-1.0); CO2 25.2 mmol/L (21.0-32.0); CREATININE 1.1 mg/dL (0.70-1.30); Calcium 9.2 mg/dL (8.5-10.1); Calculated LDL 171 mg/dL (<100); Chloride 107 mmol/L (98-107); Cholesterol 270 mg/dL (<200); Estimated GFR 70.01 (mL/min/1.73m2); Glucose 129 mg/dL (74-106); HDL Cholesterol 66 mg/dL (40-60); Potassium 4.2 mmol/L (3.5-5.1); Sodium 142 mmol/L (136-145); Total Protein 7.3 g/dL (6.4-8.2); Triglyceride 167 mg/dL (<150)
[2023-01-29 17:18] LABS: Hemoglobin A1C 5.8 % (<5.7)
[2023-01-29 22:46] LABS: PSA, Screening 2.6 ng/mL (<=6.5)
== END 2023-01-29 15:19 | disposition home or self-care (01) ==
LOC: NCHCN 15:18
PROVIDERS: PCP Family Medicine; Visit Provider Family Medicine
DX: I10 Essential (primary) hypertension (principal); I48.0 Paroxysmal atrial fibrillation; E78.5 Hyperlipidemia, unspecified; Z12.5 Encounter for screening for malignant neoplasm of prostate; R73.09 Other abnormal glucose
CPT/HCPCS: 80053; 80061; 84153; 83036; 85014; 85018

== ENCOUNTER → 2023-06-06 13:07 | Outpatient (BNVA) | payer MEDICARE, SELFPAY | PROVIDERS: PCP Family Medicine; Visit Provider Internal Medicine Cardiovascular Disease | DX: Z79.01 Long term (current) use of anticoagulants (principal); E78.5 Hyperlipidemia, unspecified; R07.89 Other chest pain; I48.91 Unspecified atrial fibrillation | CPT/HCPCS: 99214 ==

== ENCOUNTER 2023-06-13 13:42 | Outpatient (RCR) | payer MEDICARE, SELFPAY | END 2023-06-13 23:59 | disposition home or self-care (01) | LOC: CARDOPNVT 13:42 | PROVIDERS: PCP Family Medicine; Visit Provider Nurse Practitioner Family | DX: R07.89 Other chest pain (principal) | CPT/HCPCS: 93225 ==

== ENCOUNTER 2023-07-12 14:51 | Outpatient (RCR) | payer MEDICARE, SELFPAY ==
--- NOTE | 2023-07-12 15:00 | HOLTER_ITS ---
APPROVED REPORT Conclusion This is a 48-hour Holter monitor reportedly ordered for palpitations Rhythm throughout is atrial fibrillation. Average heart rate is 89. Minimum was 73, maximum 148 There were rare isolated premature ventricular contractions There was no high-grade AV block, no pauses greater than 3 seconds No patient symptoms were reported
== END 2023-07-13 23:59 | disposition home or self-care (01) ==
LOC: CARDOPNVT 14:51
PROVIDERS: PCP Family Medicine; Visit Provider Nurse Practitioner Family
DX: R00.2 Palpitations (principal)
CPT/HCPCS: 93227; 93225

== ENCOUNTER 2023-07-22 16:57 | Outpatient (RCR) | payer MEDICARE, SELFPAY | END 2023-08-13 23:59 | disposition home or self-care (01) | LOC: CARDOPNVT 16:57 | PROVIDERS: PCP Family Medicine; Visit Provider Nurse Practitioner Family | DX: R07.89 Other chest pain (principal) ==

== ENCOUNTER 2023-07-22 16:58 | Outpatient (RCR) | payer MEDICARE, SELFPAY | END 2023-08-13 23:59 | disposition home or self-care (01) | LOC: CARDOPNVT 16:58 | PROVIDERS: PCP Family Medicine; Visit Provider Nurse Practitioner Family | DX: R00.2 Palpitations (principal); I48.91 Unspecified atrial fibrillation | CPT/HCPCS: 93227; 93226 ==

== ENCOUNTER 2024-04-13 18:08 | Outpatient (REF) | payer MEDICARE, SELFPAY ==
[2024-04-13 19:21] LABS: HCT 45.2 % (40.0-50.0); HGB 15.1 g/dL (13.5-17.5); MCH 30.4 pg (27.0-33.0); MCHC 33.4 % (32.0-36.0); MCV 91 fL (80-95); Platelet Count 269 10^3/uL (130-400); RBC 4.97 10^6/uL (4.36-5.78); RDW 13.8 % (11.8-14.1); WBC 8.78 10^3/uL (4.4-10.8)
[2024-04-13 19:58] LABS: ALT 21 U/L (16-63); AST 21 U/L (15-37); Albumin 3.9 g/dL (3.4-5.0); Alkaline Phosphatase 70 U/L (46-116); Anion Gap 8.5 mmol/L (3-11); BUN 17 mg/dL (7-18); Bilirubin, Total 0.98 mg/dL (0.2-1.0); CO2 26.5 mmol/L (21.0-32.0); CREATININE 1.1 mg/dL (0.70-1.30); Chloride 104 mmol/L (98-107); Estimated GFR 69.57 (mL/min/1.73m2); Glucose 97 mg/dL (74-106); Potassium 4.3 mmol/L (3.5-5.1); Sodium 139 mmol/L (136-145); TSH (W/Ref FT4) 2.03 uIU/mL (0.36-3.74); Total Protein 7.6 g/dL (6.4-8.2)
[2024-04-13 20:25] LABS: Hemoglobin A1C 5.8 % (<5.7)
[2024-04-15 15:16] LABS: Albumin 58.1 % (55.8-66.1); Albumin g/dL 4.4 g/dL (3.6-5.2); Comment (See Note); Monoclonal Spike 3.7 % (None Seen); Monoclonal Spike g/dL 0.3 g/dL (None Seen); Total Protein 7.6 g/dL (6.3-8.2)
[2024-04-15 15:36] LABS: Immunotyping, Serum (See Note)
== END 2024-04-13 18:09 | disposition home or self-care (01) ==
LOC: NCHCN 18:08
PROVIDERS: PCP Family Medicine; Visit Provider Family Medicine
DX: I10 Essential (primary) hypertension (principal); R73.03 Prediabetes; R20.0 Anesthesia of skin; Z12.5 Encounter for screening for malignant neoplasm of prostate
CPT/HCPCS: 80053; 84153; 85027; 83036; 84165; 84443; 86320

== ENCOUNTER → 2024-04-22 00:15 | Outpatient (CLI) | payer MEDICARE, SELFPAY ==
--- NOTE | 2024-04-22 | DI.RAD_ITS ---
Exam(s) RF BARIUM SWALLOW EXAM: RF BARIUM SWALLOW CLINICAL HISTORY: DYSPHAGIA,R13.10 TECHNIQUE: 2D and realtime digital imaging was performed. CONTRAST MATERIAL: Thick and thin barium and barium tablet were administered. COMPARISON: CR XR thoracic spine complete from 11/05/2018 FINDINGS: The PA and lateral chest films show normal heart size and clear lung tabares. The lateral conference and event organiser view of the neck is unremarkable. Vascular stent noted. Esophagus: The patient swallowed barium without difficulty. Noevidence for mucosal erosions. Nofol d thickening. No mass is visible. Focal narrowing at the GE junction. The barium tablet did not pa ss through this region Motility: There is a normal primary stripping wave. Mild tertiary contractions were noted in the dist al esophagus.. There is no hiatal hernia. Mild gastroesophageal reflux was observed during the exam. IMPRESSION: Distal esophageal stricture. Tertiary contractions in distal esophagus. Mild gastroesophageal reflu x. RADIATION DOSE DELIVERED: farhan Frey=15.8 mGy
[2024-04-22] MEDS: Barium Sulfate 98% W/W 140 ML BTL PO (09:23)
[2024-04-22] MEDS: Barium Sulfate 60% W/V 355 ML BTL PO (09:26)
[2024-04-22] MEDS: Barium Sulfate 700 MG TAB PO (09:27)
[2024-04-22] MEDS: Simethicone/Sod Bicarb/Cit Ac, 4 gram PACKET 1 PACKET PO (09:28)
== END ==
PROVIDERS: PCP Family Medicine; Visit Provider Family Medicine
DX: R13.10 Dysphagia, unspecified (principal); K22.89 Other specified disease of esophagus
CPT/HCPCS: 74221; J3490

== ENCOUNTER → 2024-05-18 02:17 | Outpatient (CLI) | payer MEDICARE, SELFPAY ==
--- NOTE | 2024-05-18 09:03 | ST.MBS ---
Date of Service Date of service: 05/18/24 Time of Service: 09:00 Modified Barium Swallow Study Findings: Video fluoroscopic Swallowing Evaluation (VFSE) / Modified Barium Swallow Study (MBSS) Speech Language Pathology Report Patient referred for VFSE/MBSS from Dr. Ana Rg given dysphagia complaints. HPI & Patient report of function: Patient is a 79 year old male with complaints of food sticking in throat. Ignacio reports symptoms began approximately 6-7 months ago, with episodes initially occurring 1-2x/month and have progressed to 1-2x/week. He does feel symptoms are stable now. He denies texture pattern to symptoms, noting it can happen with any food or even liquid. He describes that food gets 'shot down' into his throat before he's ready to swallow, lodges in his throat (thyroid region) and he is forced to bring it back up and re-swallow. Sometimes he brings it back to the oral cavity, typically he feels he just 'moves it enough to go down'. Liquids can also feel they go down the wrong way and cause him to 'choke'. He denies changes with speech/voice, weight loss, or history of pna. He does endorse PND, gagging on saliva, and frequent throat clearing. Ignacio has a history of reflux, with recent barium swallow revealing distal esophageal stricture, tertiary contractions in distal esophagus, and mild gastroesophageal reflux. He denies reflux symptoms though does endorse intermittent belching after eating/drinking. He has not yet seen GI. Previous Imaging: Barium swallow 04/22/24: Distal esophageal stricture. Tertiary contractions in distal esophagus. Mild gastroesophageal reflux. IMPRESSIONS: Oral pharyngeal swallow function is within normal limits for age. See below for further breakdown of each phase of the swallow. Anticipate persistent symptoms due to the following factors: 1) Transferred sensation from esophageal dysphagia as noted above in barium swallow report, also appreciated within A-P view with sweep down in today's study 2) Symptoms of bread sticking are likely result from inefficient chewing (upper dentures, no lower dentition, utilizes tongue against upper denture to chew). Ignacio's symptoms of 'food/drink slipping into his throat too quickly' could possibly be explained by his utilization of tongue for chewing which limits ability of base of tongue to hold the bolus in oral cavity. Recommend referral to GI for esophageal management, and standard strategies below, which were reviewed with patient at end of study. No further CORRECTIONAL FOOD SERVICE SUPERVISOR needs identified. Specialist referrals:?GI RECOMMENDATIONS: Diet Texture Recommendation:?Diet modification recommended for oral phase/dentition needs IDDSI LEVEL SOLIDS 6-Soft & Bite-Sized Solids - Add extra sauces/condiments to add moisture LIQUIDS 0-Thin Liquids MEDICATIONS Whole with sips of liquid. Can consider taking in spoonful of applesauce if preferred Diet texture modification is per patient's preference; please adjust diet textures at patient's discretion & collaboration with care team. Risk Management Strategies:? Behavioral reflux precautions, including upright position during + 90 mins after meals. Small bites, approx [id number] Add extra moisture to foods PLAN: Evaluation only. No further CORRECTIONAL FOOD SERVICE SUPERVISOR needs. Recommend GI follow up. OBJECTIVE Videofluoroscopic Swallow Evaluation (VFSE/MBSS) was conducted in the lateral and [id number] projection by Speech-Language Pathologist, in collaboration with Radiologist, to evaluate oropharyngeal swallow function. Anatomic view under fluoroscopy: WFL PO Barium Contrast Trials Oral barium water-soluble contrast was administered as follows: IDDSI Level 0 Varibar thin liquid (40% w/v) IDDSI Level 2 Varibar nectar thick/mildly thick liquid (40% w/v) IDDSI Level 4 Varibar pudding/pureed/extremely thick (40% w/v) IDDSI Level 7 Regular Solid: 1/2 genaro cracker coated in 3 mL Varibar pudding MBSImP Component Scores: COMPONENT Scale SCORE 1 Lip closure (0-4) 0 Resulted in no labial escape 2 Hold Position (0-3) 2 Resulted in posterior escape of less than half of the bolus 3 Bolus Preparation (0-4) 2 Demonstrated disorganized chewing/mashing with solid pieces of bolus unchewed 4 Bolus Transport (0-4) 0 Was with brisk tongue motion 5 Oral Residue (0-4) 2 Was a collection on oral structures 6 Swallow Initiation (0-4) 1 Occurred when the bolus head was in valleculae 7 Soft Palate Elevation (0-4) 0 Resulted in no bolus between soft palate and the pharyngeal wall 8 Laryngeal Elevation (0-3) 0 Demonstrated complete superior movement of thyroid cartilage with complete approximation of arytenoids to epiglottic petiole 9 Anterior Hyoid Motion (0-2) 0 Demonstrated complete anterior movement 10 Epiglottic Movement (0-2) 0 Resulted in complete inversion 11 Laryngeal Closure (0-2) 0 Was complete with no air or contrast in laryngeal vestibule 12 Pharyngeal Stripping Wave (0-2) 0 Was present and complete 13 Pharyngeal Contraction (0-3) 0 Was complete 14 PES Opening (0-3) 0 Was completely distended and complete duration with no obstruction of flow 15 Tongue Base Retraction (0-4) 1 Allowed a trace column of contrast or air between tongue base and pharyngeal wall 16 Pharyngeal Residue (0-4) 1 Showed a trace within or on pharyngeal structures 17 Esophageal Clearance (0-4) 2 Resulted in esophageal retention with retrograde flow below pharyngoesophageal segment Results: COMPONENT Scale SCORE 1 Oral Score (0-18) 7 2 Pharyngeal Score (0-29) 0 3 Esophageal Score (0-4) 2 Functional Oral Intake Scale: COMPONENT Scale SCORE 1 Pre-Study (1-7) 7 Total oral intake with no restrictions 2 Post-Study (1-7) 6 Total oral intake with no special preparation, but must avoid specific foods or liquid items Penetration-Aspiration Scale: COMPONENT Scale SCORE 1 Thin liquid (1-8) 1 Contrast did not enter the airway 2 [place] thick (1-8) 1 Contrast did not enter the airway 3 Honey thick (1-8) NA 4 Pudding thick (1-8) 1 Contrast did not enter the airway 5 Cookie (1-8) 1 Contrast did not enter the airway Thank you for allowing us to take part in this patient's care. Please feel free to contact the [facility] Speech Language Pathology Department with any questions/concerns.
--- NOTE | 2024-05-18 10:35 | DI.RAD_ITS ---
Exam(s) RF MODIFIED SPEECH BA SWALLOW TECHNIQUE: Modified barium swallow was performed in conjunction with speech pathology. CONTRAST MATERIAL: Oral barium Oral water soluble contrast was administered. COMPARISON: No exams were available for comparison FINDINGS: Prostate was provided by the radiologist during modified barium swallow performed with the speech the rapist. See that separate report. There is no obvious aspiration evident during this study. IMPRESSION: No evidence of aspiration or penetration. RADIATION DOSE DELIVERED: farhan Frey=9.31 mGy
[2024-05-18] MEDS: Barium Sulfate Oral Paste 40% W/V 230 ML TUBE PO (10:37)
[2024-05-18] MEDS: Barium Sulfate 40% W/V 240 ML BTL PO (10:39)
[2024-05-18] MEDS: Barium Sulfate 81% w/w for Oral Suspension 148 GM BTL PO (10:40)
== END ==
PROVIDERS: PCP Family Medicine; Visit Provider Family Medicine
DX: R13.10 Dysphagia, unspecified (principal)
CPT/HCPCS: 92526; 74221

== ENCOUNTER → 2024-06-09 12:53 | Outpatient (BNVA) | payer MEDICARE, SELFPAY | PROVIDERS: PCP Family Medicine; Visit Provider Internal Medicine Cardiovascular Disease | DX: I48.21 Permanent atrial fibrillation (principal) | CPT/HCPCS: 99213 ==

== ENCOUNTER 2024-10-27 16:53 | Outpatient (REF) | payer MEDICARE, SELFPAY ==
[2024-10-27 16:13] LABS: HCT 47.4 % (40.0-50.0); HGB 15.2 g/dL (13.5-17.5); MCH 29.1 pg (27.0-33.0); MCHC 32.1 % (32.0-36.0); MCV 91 fL (80-95); MPV 10.1 fL (8.0-11.0); Platelet Count 257 10^3/uL (130-400); RBC 5.22 10^6/uL (4.36-5.78); RDW 13.6 % (11.8-14.1); RDW-SD 45.1 fL; WBC 6.88 10^3/uL (4.4-10.8)
[2024-10-27 16:34] LABS: Iron 39 ug/dL (65-175)
[2024-10-27 16:44] LABS: ALT 14 U/L (16-63); AST 35 U/L (15-37); Albumin 3.6 g/dL (3.4-5.0); Alkaline Phosphatase 84 U/L (46-116); Anion Gap 7.6 mmol/L (3-11); BUN 18 mg/dL (7-18); Bilirubin, Total 0.93 mg/dL (0.2-1.0); CO2 26.4 mmol/L (21.0-32.0); CREATININE 1.2 mg/dL (0.70-1.30); Calcium 9.5 mg/dL (8.5-10.1); Chloride 106 mmol/L (98-107); Estimated GFR 62.29 (mL/min/1.73m2); Glucose 95 mg/dL (74-106); Sodium 140 mmol/L (136-145); TSH 2.37 uIU/mL (0.36-3.74); Total Protein 8.2 g/dL (6.4-8.2)
[2024-11-05 09:30] LABS: Biotin (Vitamin B7), Serum 1327.5 pg/mL
== END 2024-10-27 16:54 | disposition home or self-care (01) ==
LOC: NCHCN 16:53
PROVIDERS: PCP Family Medicine; Visit Provider Family Medicine
DX: L60.3 Nail dystrophy (principal)
CPT/HCPCS: 80053; 84591; 85027; 83540; 84443

== ENCOUNTER 2025-05-10 02:35 | Outpatient (CLI) | payer MEDICARE, SELFPAY ==
--- NOTE | 2025-05-10 | DI.RAD_ITS ---
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 TECHNIQUE: 2D digital imaging was performed. COMPARISON: No exams were available for comparison FINDINGS: No evidence of fracture or carpal dislocation. There are significant advanced degenerative changes at the triscaphe joint. However, there are no obvious degenerative changes in the 1st carpometacarpal joint. Scapholunate distance is normal. There is some calcification in the triangular fibrocartilage on the medial aspect of the wrist. Also noted are calcific densities distal to the ulnar styloid which do not have the appearance of fracture fragments. 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 DATA REPOSITORY: RADIATION DOSE DELIVERED:
--- NOTE | 2025-05-10 | DI.RAD_ITS ---
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 TECHNIQUE: 2D digital imaging was performed. COMPARISON: No exams were available for comparison FINDINGS: 3 views No evidence of fracture or dislocation. No osseous lesions nor erosions or obvious degenerative changes in the hand. However, at the level the wrist there is significant degenerative changes in the triscaphe joint on the lateral aspect of the wrist. There are no degenerative changes in the 1st carpometacarpal joint. There is some calcification in the triangular fibrocartilage on the medial aspect of the wrist. There is no osteophytic density distal to the ulnar styloid which does not have an acute fracture fragment appearance. The scapholunate distance is normal. IMPRESSION: There are advanced degenerative changes at the triscaphe joint of the wrist. No obvious degenerative changes in the other articulations of the hand and wrist. DATA REPOSITORY: RADIATION DOSE DELIVERED:
== END 2025-05-10 02:55 ==
LOC: DI 02:35
PROVIDERS: PCP Family Medicine; Visit Provider Family Medicine
DX: M19.032 Primary osteoarthritis, left wrist (principal)
CPT/HCPCS: 73110; 73130

== ENCOUNTER 2025-05-10 02:35 | Outpatient (CLI) | payer MEDICARE, SELFPAY ==
--- NOTE | 2025-05-10 | DI.RAD_ITS ---
Exam(s) XR FOOT RT COMPLETE EXAM: XR FOOT RT COMPLETE CLINICAL HISTORY: Acquired hallux valgus, Rt foot, M20.11. TECHNIQUE: 2D digital imaging was performed. COMPARISON: No exams were available for comparison FINDINGS: 3 views No evidence of acute fracture or diastasis of the Lisfranc joint. There are degenerative changes in the great toe metatarsophalangeal joint with significant joint space narrowing on the lateral aspect of this articulation; less so on the medial aspect. Other articulations of the foot appear un remarkable and there is no pes planus. There is a moderate size inferior calcaneal spur. There is no enthesophyte on the posterior calcaneus. There is no calcification in the plantar fascia. IMPRESSION: Moderate degenerative changes in the great toe metatarsophalangeal joint. Moderate size inferior calcaneal spur. No calcification in the plantar fascia. No evidence of osseous tarsal coalition. DATA REPOSITORY: RADIATION DOSE DELIVERED:
== END 2025-05-10 02:55 ==
LOC: DI 02:35
PROVIDERS: PCP Family Medicine; Visit Provider Podiatrist Foot & Ankle Surgery
DX: M20.11 Hallux valgus (acquired), right foot (principal); M19.071 Primary osteoarthritis, right ankle and foot
CPT/HCPCS: 92526; 73110; 73130; 73630; 74221

== ENCOUNTER 2025-06-22 09:12 | Outpatient (CLI) | payer MEDICARE, SELFPAY ==
--- NOTE | 2025-06-22 09:00 | RT.EKG_ITS ---
APPROVED REPORT Exam: Resting ECG Reason for Exam: evaluate cardiac status Patient Location: O HR:165 bpm ECG Measurements Heart Rate 165 AXIS AL [id number] P [id number] QRSd 115 QRS -12 QT 388 T 47 QTc 643 Conclusion Atrial fibrillation rate is 75-100 Baseline artifact Poor R wave progression Artifact in lead(s) II,aVR,aVF,V1,V2,V3,V4,V5,V6
== END 2025-06-22 09:13 | disposition home or self-care (01) ==
LOC: DI.CARD 09:13
PROVIDERS: PCP Family Medicine; Visit Provider Internal Medicine Cardiovascular Disease
DX: I48.21 Permanent atrial fibrillation (principal); R06.02 Shortness of breath
CPT/HCPCS: 93010

== ENCOUNTER → 2025-06-22 10:52 | Outpatient (BNVA) | payer MEDICARE, SELFPAY | PROVIDERS: PCP Family Medicine; Referring Provider Family Medicine; Visit Provider Internal Medicine Cardiovascular Disease | DX: I48.21 Permanent atrial fibrillation (principal); R06.02 Shortness of breath; I71.40 Abdominal aortic aneurysm, without rupture, unspecified | CPT/HCPCS: 99214; 93005 ==

== ENCOUNTER 2025-07-05 07:21 | Outpatient (CLI) | payer MEDICARE, SELFPAY ==
[2025-07-05 13:15] LABS: Estimated GFR 68.71 (mL/min/1.73m2)
--- NOTE | 2025-07-05 14:30 | DI.US_ITS ---
APPROVED REPORT EXAM: Comprehensive 2D, Doppler, and color-flow Echocardiogram Patient Location: Out-Patient Leg Breaker: Francisco Meza RDCS (AE) Indications: Afib Other Information Study Quality: Adequate Conclusion Normal left ventricular wall thickness and chamber size. Ejection fraction is 55 to 60%. Wall motion is normal Normal right ventricular size and function Both atria are moderately to severely dilated Aortic valve is trileaflet with mild regurgitation Mildly thickened mitral leaflets. Moderate central mitral regurgitation Moderate tricuspid regurgitation. Estimated right ventricular systolic pressure is 36 mmHg Ascending aorta measures 3.56 cm Wall motion Left Ventricle The left ventricle is normal size. The left ventricular systolic function is normal. The left ventricular ejection fraction is within the normal range. There is normal left ventricular wall thickness. There is normal LV segmental wall motion. There is no ventricular septal defect visualized. LVEF is 55-60%. Right Ventricle The right ventricle is normal size. The right ventricular systolic function is normal. Atria Left atrium is moderately to severely dilated. Right atrium is moderately dilated. The interatrial septum is intact with no evidence for an atrial septal defect. Aortic Valve The aortic valve is normal in structure. Aortic valve is trileaflet. There is no aortic valvular stenosis. Mild aortic regurgitation. Mitral Valve Mitral valve leaflets are mildly thickened. No evidence of mitral valve stenosis. Moderate mitral regurgitation. Tricuspid Valve The tricuspid valve is normal in structure. There is no tricuspid valve stenosis. Moderate tricuspid regurgitation. The RVSP is 35.8 mmHg. Pulmonic Valve The pulmonary valve is normal in structure. There is no pulmonic valvular stenosis. There is no pulmonic valvular regurgitation. Great Vessels The aortic root is normal in size. The ascending aorta is mildly dilated. IVC is normal in size and collapses >50% with inspiration. Pericardium There is no pericardial effusion. 2D Dimensions IVSD d PLAX 0.84 cm M: 0.6-1.2 Ao Root d 3.35 cm M: 3.1 - 3.7 LVPW d PLAX 0.81 cm M: 0.6 - 1.2 Ao Asc Diam d 3.56 cm M: 2.6 - 3.4 LVID d PLAX 4.76 cm M: 4.2 - 5.8 LVDs 3.47 cm M: 2.5 - 4.0 LV EF Teichholz 52.9 % FS 27.22 % LV EDV (Teich) 105.7 mL LV ESV (Teich) 49.7 mL Stroke Vol Index (Teich) 32.14 M-Mode TAPSE 1.77 cm (M/F) >1.7 Auto EF LV EDV A4C 65.7 mL LV EDV A2C 90.9 mL LV EDV BP 76.5 mL LV ESV A4C 29.9 mL LV ESV A2C 43.6 mL LV ESV BP 35.5 mL LVEF(%) A4C 54.5 % LVEF(%) A2C 52.1 % LVEF(%) BP 53.6 % LV SV A4C 35.8 ml LV SV A2C 47.3 ml LV SV BP 41.0 ml LV CO A4C 2.6 L/min LV CO A2C 3.3 L/min LV CO BP 3.0 L/min HR A4C 72.44 BPM HR A2C 70.32 BPM LV EDV Index (BP) LA Volume LA Length A4C 5.9 cm LA Length A2C 6.1 cm LA Area A4C s 18.30 cm2 LA Area A2C s 21.05 cm2 LA Vol A4C A-L 48.19 mL LA Vol A2C A-L 61.23 mL LA Vol Biplane A-L 55.4 mL LA Vol/BSA A4C A-L LA Vol/BSA A2C A-L LA Vol/BSA BP A-L 31.8 mL/m2 LA Vol A4C MOD 43.9 mL LA Vol A2C MOD 58.7 mL LA Vol BP MOD 51.7 mL RA Volume RA Area A4C 15.3 cm2 RA ESV A4C (A-L) 38.1mL RA Vol/BSA A4C A-L RA Length A4C 5.2 cm RA ESV A4C (MOD) 36.6mL LV Diastology MV E' medial 0.115 (>0.07 m/s) MV E Vmax 1.24 (0.4-1.3 m/s) MV E' lateral 0.118 (>0.1 m/s) Aortic Valve AoV Vmax 1.00 m/s LVOT Vmax 0.79 m/s AoV Peak Grad 35.0 mmHg LVOT Peak Grad 2.5 mmHg AoV Area (Vmax) 2.76 cm2 LVOT VTI 0.175 m AoV VTI 0.215 m LVOT Mean Grad 1.3 mmHg AoV Mean Jim. 0.68 m/s LVOT SV 61.20 mL AoV Mean Grad 2.1 mmHg LVOT Diam s 2.10 cm AoV Area (VTI) 2.85 cm2 AV Regurg Peak Gr. 3.98 mmHg Velocity Ratio 0.79 AR Decel [place] 2.1m/sec2 AR DT 1898 msec AR PHT 551 msec AR Vmax 4.07 m/s Pulmonary Valve PV Vmax 1.12 (0.5-1.5 m/s) PV Peak Grad 5.0 mmHg PV Mean Jim 0.66 m/s PV Mean Grad 2.1 mmHg Tricuspid Valve RA Pressure 3.00 mmHg TR Vmax 2.86 m/s TR Peak Grad 32.7 mmHg RVSP (TR) 35.8 mmHg
== END 2025-07-05 07:41 ==
LOC: DI 07:21
PROVIDERS: PCP Family Medicine; Visit Provider Internal Medicine Cardiovascular Disease
DX: I48.91 Unspecified atrial fibrillation (principal); I36.1 Nonrheumatic tricuspid (valve) insufficiency
CPT/HCPCS: 93306; 82565

== ENCOUNTER 2025-07-05 07:29 | Outpatient (CLI) | payer MEDICARE, SELFPAY ==
--- NOTE | 2025-07-05 | DI.CT_ITS ---
Exam(s) CT ABDOMEN PELVIS CTA EXAM: CT ABDOMEN PELVIS CTA CLINICAL HISTORY: INFRARENAL AAA W/O RUPTURE EVAL AAA ANATOMY. TECHNIQUE: Imaging Protocol: Axial CT angiography was performed with multi- slice acquisition and multi-planar and/or 3D reconstructions. CONTRAST MATERIAL: Intravenous: Omnipaque 350 Contrast volume:100 ml Oral: no COMPARISON: CT CT THORAX ABD/PEL CTA from 12/21/2022 FINDINGS: Aorta: Mild interval increase in size previously noted fusiform abdominal aortic aneurysm was extends to the level of the bifurcation. It now measures 5 cm in diameter. There is some mural thrombus greater distally. No dissection. Above the level of the aneurysm, the aorta is tortuous. No significant stenosis. Iliac Arteries: No evidence of aneurysm. Mild narrowing at the proximal right iliac artery. [id number] atherosclerotic calcifications. Common Femoral Arteries: Multiple calcifications. No evidence of stenosis. Celiac [place]:No evidence of stenosis. SMA: No evidence of stenosis. Renal Arteries: moderate stenosis bilaterally at the origins. There is a single renal artery perfusing each kidney. RICHIE: Patent. Venous structures: Patent. Lung bases:No acute findings. Liver: Normal size. Normal density. No measurable mass. Gallbladder and biliary tract: Status post cholecystectomy. No biliary dilation. Pancreas: Normal density, no abnormal calcifications or inflammatory process. Spleen: Normal. Kidneys: Normal size, contour and axis. No obstructive uropathy. Bilateral simple renal cysts. No suspicious masses seen. No evidence of calculi. Adrenal glands: No masses seen. Bladder: No gross wall thickening. No evidence of calculi. No evidence of mass. Bowel: No obstruction or bowel wall thickening. Diverticulosis. Peritoneal cavity: No ascites. No focal collection. No mesenteric inflammatory response. Lymph nodes: Within normal limits. Reproductive: Mildly enlarged prostate. Soft Tissues:Bilateral inguinal hernia repairs. Bones: No acute findings. Degenerative changes and mild scoliosis. IMPRESSION: Mild interval increase in size of abdominal aortic aneurysm to 5 cm. Small amount of mural thrombus. No dissection. RADIATION DOSE DELIVERED: 1,122.83mGy.cm Total DLP DATA REPOSITORY: All CT scans at this facility are submitted to the National Radiology Data Registry (NRDR) Dose Index Registry (DIR) with the [employer] (ACR). RADIATION OPTIMIZATION: All CT scans at this facility use at least one of these dose optimization techniques: automated exposure control; mA and/or kV adjustment per patient size (includes targeted exams where dose is matched to clinical indication); or iterative reconstruction.
[2025-07-05] MEDS: Normal Saline Flush 10 ML SYR IVP (13:33)
[2025-07-05] MEDS: Normal Saline - Diluent 50 ML VIAL IJ (13:33)
[2025-07-05] MEDS: Omnipaque 350 MG/ML 100 ML BTL IJ (13:34)
== END 2025-07-05 07:49 ==
LOC: DI 07:29
PROVIDERS: PCP Family Medicine; Visit Provider Surgery Vascular Surgery
DX: I71.43 Infrarenal abdominal aortic aneurysm, without rupture (principal)
CPT/HCPCS: 93306; 74174; 82565; J3490